=== PATIENT | female | born 1940 | race Caucasian/White ===

== ENCOUNTER 2017-04-24 11:45 | Emergency (ER) | payer MEDICARE, OTHER ==
[~2017-04-24] VITALS: Ht 152.4 cm; Wt 76.2 kg
[2017-04-24 11:47] VITALS: BP 182/90
== END 2017-04-24 12:29 | disposition home or self-care (01) ==
LOC: ED 12:22
DX: Z76.0 Encounter for issue of repeat prescription (principal); E78.00 Pure hypercholesterolemia, unspecified
CPT/HCPCS: 99283